=== PATIENT | female | born 1985 | race Two or more races ===

== ENCOUNTER 2016-11-23 22:57 | Emergency (ER) | payer BC, MEDICAID ==
[2016-11-23] MEDS ORDERED: Naloxone 0.4 MG/ML SDV IVPUSH PRN (23:00)
[2016-11-23] MEDS ORDERED: Naloxone 0.4 MG/ML SDV ONE (23:00)
--- NOTE | 2016-11-23 23:32 | EDM.PDOC ---
ED HPI GENERAL MEDICAL PROBLEM - General Chief Complaint: Drug or Alcohol Abuse Stated Complaint: MEDICATION Time Seen by Provider: 11/23/16 23:02 Source of Information: Reports: Patient History Limitations: Reports: No limitations - History of Present Illness INITIAL COMMENTS - FREE TEXT/NARRATIVE: c/o mental status change states she "took some pills", moving, not answering questions, appeared volitional, given Narcan, still preferred to keep eyes closed, says she is in pain, she is "tired of being in pain". Says pain is in RLQ, that she has had 3 abd surgeries in [place] for endometriosis, they "took everything out", "surgery did not work", still having pain. Wants pain to go away. 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 Female Surgical History: Reports: Hysterectomy, Salpingo-oophorectomy Other Female Surgeries/Procedures: oopherectomy Social & Family History - Family History Family Medical History: Noncontributory - Tobacco Use Smoking Status *Q: Light Tobacco Smoker Years of Tobacco use: 10 Packs/Tins Daily: 0 Used Tobacco, but Quit: No Second Hand Smoke Exposure: No - Caffeine Use Caffeine Use: Reports: Coffee - Alcohol Use Days Per Week of Alcohol Use: 0 Number of Drinks Per Day: 12 Total Drinks Per Week: 0 - Recreational Drug Use Recreational Drug Use: No - Living Situation & Occupation Living situation: Reports: ED ROS GENERAL - Review of Systems Review Of Systems: See Below Constitutional: Reports: no symptoms HEENT: Reports: No symptoms Respiratory: Reports: No Symptoms Cardiovascular: Reports: No symptoms Endocrine: Reports: no symptoms GI/Abdominal: Reports: No symptoms : Reports: no symptoms Musculoskeletal: Reports: no symptoms Skin: Reports: no symptoms Neurological: Reports: Other (somnolence) Psychiatric: Reports: No symptoms Hematologic/Lymphatic: Reports: no symptoms Immunologic: Reports: no symptoms ED EXAM, GENERAL - Physical Exam Exam: See Below Exam Limited By: Altered mental status General Appearance: alert, WD/WN, no apparent distress Eye Exam: bilateral eye: normal inspection, other (pupils 2/2 mm b/l, conjugate) Ears: normal external exam, hearing grossly normal Nose: normal inspection, normal mucosa, no blood Throat/Mouth: Normal inspection, Normal lips, Normal teeth, Normal gums, Normal oropharynx, Normal voice, No airway compromise, Other (jewelry in tip of tongue) Head: atraumatic, normocephalic Neck: normal inspection, supple, non-tender, full range of motion Respiratory/Chest: no respiratory distress, lungs clear, normal breath sounds, no accessory muscle use, chest non-tender Cardiovascular: regular rate, rhythm, no edema, no gallop, no murmur, no rub GI/Abdominal: normal bowel sounds, soft, non tender, no distention, no mass Back Exam: normal inspection, full range of motion, NT Extremities: normal inspection, normal range of motion, non-tender, normal capillary refill, no pedal edema Neurological: CN II-XII intact, normal reflexes, no motor/sensory deficits, other (DTRs 2+ at biceps and patella b/l) Skin Exam: Warm, Dry, Intact, Normal color, No rash Lymphatic: no adenopathy Course - Vital Signs Last Recorded V/S: Last Vital Signs Temp 36.8 C 11/23/16 23:00 Pulse 98 11/23/16 23:00 Resp 18 11/23/16 23:00 BP 124/84 11/23/16 23:00 Pulse Ox 100 11/23/16 23:00 - Orders/Labs/Meds Orders: Active Orders 24 hr Category Date Time Status CBC WITH AUTO DIFF [HEME] Stat Lab 11/23/16 23:20 Received Labs: Laboratory Tests 11/23/16 11/23/16 11/23/16 Range/Units 23:05 23:05 23:20 Sodium 140 (135-145) mmol/L Potassium 3.9 (3.5-5.3) mmol/L Chloride 105 (100-110) mmol/L Carbon Dioxide 27 (23-29) mmol/L BUN 8 (5-20) mg/dL Creatinine 0.5 L (0.6-1.3) mg/dL Est Cr Clr Drug Dosing TNP Estimated GFR (MDRD) > 60 (>60) BUN/Creatinine Ratio 16.0 (9-20) Glucose 98 (80-116) mg/dL Calcium 9.0 (8.6-10.2) mg/dL Total Bilirubin 0.2 (0.1-1.3) mg/dL AST 15 D (5-27) IU/L ALT 18 D (14-26) IU/L Alkaline Phosphatase 88 (56-112) IU/L C-Reactive Protein 0.5 (0.0-1.0) mg/dL Total Protein 7.4 (6.0-8.0) g/dL Albumin 4.2 (3.5-5.2) g/dL Globulin 3.2 g/dL Albumin/Globulin Ratio 1.3 Urine Color Yellow (YELLOW) Urine Appearance Clear (CLEAR) Urine pH 6.5 (5.0-6.5) Ur Specific [place] 1.015 (1.010-1.025) Urine Protein Negative (NEGATIVE) mg/dL Urine Glucose (UA) Normal (NEGATIVE) mg/dL Urine Ketones Negative (NEGATIVE) mg/dL Urine Occult Blood Negative (NEGATIVE) Urine Nitrite Negative (NEGATIVE) Urine Bilirubin Negative (NEGATIVE) Urine Urobilinogen Normal (NEGATIVE) mg/dL Ur Leukocyte Esterase Negative (NEGATIVE) Urine RBC 0-5 (0) Urine WBC 0-5 (0) Ur Squamous Epith Cells Few H (NS,R,O) Urine Bacteria Few H (NS) Salicylates (5.0-25.0) mg/dL Urine Opiates Screen Negative (NEGATIVE) Ur Oxycodone Screen Negative (NEGATIVE) Ur Propoxyphene Screen Negative (NEGATIVE) Acetaminophen (10-30) ug/mL Ur Barbituates Screen Negative (NEGATIVE) Ur Tricyclics Screen Negative (NEGATIVE) Ur Phencyclidine Scrn Negative (NEGATIVE) Ur Amphetamine Screen Negative (NEGATIVE) Urine MDMA Screen Negative (NEGATIVE) U Benzodiazepines Scrn Negative (NEGATIVE) U Cocaine Metab Screen Negative (NEGATIVE) U Marijuana (THC) Screen Negative (NEGATIVE) Ethyl Alcohol (<0.01) % 11/23/16 11/23/16 Range/Units 23:20 23:20 Sodium (135-145) mmol/L Potassium (3.5-5.3) mmol/L Chloride (100-110) mmol/L Carbon Dioxide (23-29) mmol/L BUN (5-20) mg/dL Creatinine (0.6-1.3) mg/dL Est Cr Clr Drug Dosing Estimated GFR (MDRD) (>60) BUN/Creatinine Ratio (9-20) Glucose (80-116) mg/dL Calcium (8.6-10.2) mg/dL Total Bilirubin (0.1-1.3) mg/dL AST (5-27) IU/L ALT (14-26) IU/L Alkaline Phosphatase (56-112) IU/L C-Reactive Protein (0.0-1.0) mg/dL Total Protein (6.0-8.0) g/dL Albumin (3.5-5.2) g/dL Globulin g/dL Albumin/Globulin Ratio Urine Color (YELLOW) Urine Appearance (CLEAR) Urine pH (5.0-6.5) Ur Specific [place] (1.010-1.025) Urine Protein (NEGATIVE) mg/dL Urine Glucose (UA) (NEGATIVE) mg/dL Urine Ketones (NEGATIVE) mg/dL Urine Occult Blood (NEGATIVE) Urine Nitrite (NEGATIVE) Urine Bilirubin (NEGATIVE) Urine Urobilinogen (NEGATIVE) mg/dL Ur Leukocyte Esterase (NEGATIVE) Urine RBC (0) Urine WBC (0) Ur Squamous Epith Cells (NS,R,O) Urine Bacteria (NS) Salicylates < 4.0 L (5.0-25.0) mg/dL Urine Opiates Screen (NEGATIVE) Ur Oxycodone Screen (NEGATIVE) Ur Propoxyphene Screen (NEGATIVE) Acetaminophen < 10 L (10-30) ug/mL Ur Barbituates Screen (NEGATIVE) Ur Tricyclics Screen (NEGATIVE) Ur Phencyclidine Scrn (NEGATIVE) Ur Amphetamine Screen (NEGATIVE) Urine MDMA Screen (NEGATIVE) U Benzodiazepines Scrn (NEGATIVE) U Cocaine Metab Screen (NEGATIVE) U Marijuana (THC) Screen (NEGATIVE) Ethyl Alcohol 0.04 H (<0.01) % Meds: Medications Discontinued Medications Generic Name Dose Route Start Last Admin Trade Name Freq PRN Reason Stop Dose Admin Naloxone HCl Confirm 11/23/16 23:00 11/23/16 23:04 Narcan Administered 11/23/16 23:01 0.4 mg Dose Administration 0.4 mg .ROUTE .STK-MED ONE Naloxone HCl 0.1 mg 11/23/16 23:00 Narcan IVPUSH 11/23/16 23:01 ONETIME PRN Oversedation - Re-Assessments/Exams Free Text/Narrative Re-Assessment/Exam: 11/24/16 00:09 labs reviewed, ethanol 40, urine tox neg, CBC and CRP and CMP neg. Pt alert and responding. Abd is NT despite pt c/o pain, multiple old port sites on abd from laparoscopies noted. Pt medically stable. 11/24/16 00:11 Departure - Departure Time of Disposition: 00:11 Disposition: Home, Self-Care 01 Condition: good Clinical Impression: Chronic abdominal pain Forms: ED Department Discharge Additional Instructions: Take your meds only as prescribed. Continue your daily routine. See your doctor in 1-2 days. Call your Physician or Return to Emergency Department if: * Your condition worsens in any way. * You develop fever greater than 100.4. * You have vomiting that does not stop with medications. * You have pain that is not controlled with medications. - My Orders Last 24 Hours: My Active Orders 11/23/16 23:20 CBC WITH AUTO DIFF [HEME] Stat - Assessment/Plan Last 24 Hours: My Active Orders 11/23/16 23:20 CBC WITH AUTO DIFF [HEME] Stat
[2016-11-23 23:45] LABS: ACETAMINOPHEN < 10 ug/mL (10-30)
[2016-11-24 00:46] VITALS: BP 110/68
== END 2016-11-24 00:45 | disposition home or self-care (01) ==
LOC: FB.ED 22:57
DX: R10.31 Right lower quadrant pain (principal); G89.29 Other chronic pain; F41.9 Anxiety disorder, unspecified; F32.9 Major depressive disorder, single episode, unspecified; F17.200 Nicotine dependence, unspecified, uncomplicated; Z90.710 Acquired absence of both cervix and uterus; Z86.2 Personal history of diseases of the blood and blood-forming organs and certain disorders involving the immune mechanism
CPT/HCPCS: 36415; 80053; 80305; 81001; 85025; 86140; 96374; 99284; G0480; J2310

== ENCOUNTER 2017-01-27 09:42 | Emergency (ER) | payer BC, MEDICAID ==
[2017-01-27] MEDS ORDERED: Sodium Chloride 0.9% 1,000 ML IV ONE (09:44)
[2017-01-27 11:17] VITALS: BP 124/72
--- NOTE | 2017-01-27 11:29 | EDM.PDOC ---
ED HPI GENERAL MEDICAL PROBLEM - General Chief Complaint: Behavioral/Psych Stated Complaint: OD Time Seen by Provider: 01/27/17 09:45 Source of Information: Reports: Patient, Family - History of Present Illness INITIAL COMMENTS - FREE TEXT/NARRATIVE: long history of depression, grandmother last month and has lead to her spiraling into dispair, had mental health admission couple weeks ago. this morning feeling suicidal and overdosed on her benzodiazepem and antidepressant. Feels sleepy but otherwise denies any other symptoms. 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, Musculoskeletal History: Reports: Arthritis, Back Pain, Chronic Psychiatric History: Reports: Anxiety, Depression, Panic Attack Hematologic History: Reports: Anemia - Past Surgical History Female Surgical History: Reports: Hysterectomy, Salpingo-Oophorectomy Social & Family History - Family History Family Medical History: Noncontributory - Tobacco Use Smoking Status *Q: Light Tobacco Smoker Years of Tobacco use: 10 Packs/Tins Daily: 0 Used Tobacco, but Quit: No Second Hand Smoke Exposure: No - Caffeine Use Caffeine Use: Reports: Coffee - Alcohol Use Days Per Week of Alcohol Use: 0 Number of Drinks Per Day: 12 Total Drinks Per Week: 0 - Recreational Drug Use Recreational Drug Use: No - Living Situation & Occupation Living situation: Reports: ED ROS GENERAL - Review of Systems Review Of Systems: ROS reveals no pertinent complaints other than HPI. ED EXAM, BEHAVIORAL HEALTH - Physical Exam Exam: See Below Exam Limited By: Altered Mental Status General Appearance: Lethargic Eye Exam: Bilateral Eye: PERRL Ears: Normal External Exam Head: Atraumatic Respiratory/Chest: No Respiratory Distress, Lungs Clear Cardiovascular: Normal Peripheral Pulses, Regular Rate, Rhythm Neurological: Alert, Oriented x 3 Psychiatric: Depressed Mood, Flat Affect, Suicidal Plan, Suicidal Thoughts, Auditory Hallucinations COURSE, BEHAVIORAL HEALTH COMP - Course Vital Signs: Last Vital Signs Temp 36.6 C 01/27/17 09:42 Pulse 63 01/27/17 09:42 Resp 14 01/27/17 09:42 BP 124/72 01/27/17 09:42 Pulse Ox 100 01/27/17 09:42 Orders, Labs, Meds: Active Orders 24 hr Category Date Time Status EKG 12 Lead [EK] Routine Ther 01/27/17 09:44 Ordered Laboratory Tests 01/27/17 01/27/17 01/27/17 Range/Units 09:50 09:50 09:50 WBC 4.8 (4.5-12.0) X10-3/uL RBC 5.02 (3.23-5.20) x10(6)uL Hgb 15.4 (11.5-15.5) g/dL Hct 45.0 (30.0-51.3) % MCV 89.6 (80-96) fL MCH 30.8 (27.7-33.6) pg MCHC 34.3 (32.2-35.4) g/dL RDW 11.8 (11.5-15.5) % Plt Count 293 (125-369) X10(3)uL MPV 7.9 (7.4-10.4) fL Neut % (Auto) 65.5 (46-82) % Lymph % (Auto) 25.4 (13-37) % [place] % (Auto) 6.3 (4-12) % Eos % (Auto) 2 (1.0-5.0) % Baso % (Auto) 1 (0-2) % Neut # (Auto) 3.2 (1.6-8.3) # Lymph # (Auto) 1.2 (0.6-5.0) # [place] # (Auto) 0.3 (0.0-1.3) # Eos # (Auto) 0.1 (0.0-0.8) # Baso # (Auto) 0.0 (0.0-0.2) # Sodium 137 (135-145) mmol/L Potassium 3.7 (3.5-5.3) mmol/L Chloride 104 (100-110) mmol/L Carbon Dioxide 26 (23-29) mmol/L BUN 19 D (5-20) mg/dL Creatinine 0.7 (0.6-1.3) mg/dL Est Cr Clr Drug Dosing TNP Estimated GFR (MDRD) > 60 (>60) BUN/Creatinine Ratio 27.1 H (9-20) Glucose 103 (80-116) mg/dL Calcium 8.8 (8.6-10.2) mg/dL Total Bilirubin 1.2 (0.1-1.3) mg/dL AST 15 (5-27) IU/L ALT 13 L D (14-26) IU/L Alkaline Phosphatase 69 (56-112) IU/L Total Protein 7.7 (6.0-8.0) g/dL Albumin 4.4 (3.5-5.2) g/dL Globulin 3.3 g/dL Albumin/Globulin Ratio 1.3 TSH, Ultra Sensitive 0.84 (0.4-5.5) nlU/mL Urine Color (YELLOW) Urine Appearance (CLEAR) Urine pH (5.0-6.5) Ur Specific [place] (1.010-1.025) Urine Protein (NEGATIVE) mg/dL Urine Glucose (UA) (NEGATIVE) mg/dL Urine Ketones (NEGATIVE) mg/dL Urine Occult Blood (NEGATIVE) Urine Nitrite (NEGATIVE) Urine Bilirubin (NEGATIVE) Urine Urobilinogen (NEGATIVE) mg/dL Ur Leukocyte Esterase (NEGATIVE) Urine WBC (0) Ur Squamous Epith Cells (NS,R,O) Urine Bacteria (NS) Urine HCG, Qual (NEGATIVE) Urine Opiates Screen (NEGATIVE) Ur Oxycodone Screen (NEGATIVE) Ur Propoxyphene Screen (NEGATIVE) Ur Barbituates Screen (NEGATIVE) Ur Tricyclics Screen (NEGATIVE) Ur Phencyclidine Scrn (NEGATIVE) Ur Amphetamine Screen (NEGATIVE) Urine MDMA Screen (NEGATIVE) U Benzodiazepines Scrn (NEGATIVE) U Cocaine Metab Screen (NEGATIVE) U Marijuana (THC) Screen (NEGATIVE) Ethyl Alcohol (<0.01) % 01/27/17 01/27/17 01/27/17 Range/Units 09:50 10:40 10:40 WBC (4.5-12.0) X10-3/uL RBC (3.23-5.20) x10(6)uL Hgb (11.5-15.5) g/dL Hct (30.0-51.3) % MCV (80-96) fL MCH (27.7-33.6) pg MCHC (32.2-35.4) g/dL RDW (11.5-15.5) % Plt Count (125-369) X10(3)uL MPV (7.4-10.4) fL Neut % (Auto) (46-82) % Lymph % (Auto) (13-37) % [place] % (Auto) (4-12) % Eos % (Auto) (1.0-5.0) % Baso % (Auto) (0-2) % Neut # (Auto) (1.6-8.3) # Lymph # (Auto) (0.6-5.0) # [place] # (Auto) (0.0-1.3) # Eos # (Auto) (0.0-0.8) # Baso # (Auto) (0.0-0.2) # Sodium (135-145) mmol/L Potassium (3.5-5.3) mmol/L Chloride (100-110) mmol/L Carbon Dioxide (23-29) mmol/L BUN (5-20) mg/dL Creatinine (0.6-1.3) mg/dL Est Cr Clr Drug Dosing Estimated GFR (MDRD) (>60) BUN/Creatinine Ratio (9-20) Glucose (80-116) mg/dL Calcium (8.6-10.2) mg/dL Total Bilirubin (0.1-1.3) mg/dL AST (5-27) IU/L ALT (14-26) IU/L Alkaline Phosphatase (56-112) IU/L Total Protein (6.0-8.0) g/dL Albumin (3.5-5.2) g/dL Globulin g/dL Albumin/Globulin Ratio TSH, Ultra Sensitive (0.4-5.5) nlU/mL Urine Color (YELLOW) Urine Appearance (CLEAR) Urine pH (5.0-6.5) Ur Specific [place] (1.010-1.025) Urine Protein (NEGATIVE) mg/dL Urine Glucose (UA) (NEGATIVE) mg/dL Urine Ketones (NEGATIVE) mg/dL Urine Occult Blood (NEGATIVE) Urine Nitrite (NEGATIVE) Urine Bilirubin (NEGATIVE) Urine Urobilinogen (NEGATIVE) mg/dL Ur Leukocyte Esterase (NEGATIVE) Urine WBC (0) Ur Squamous Epith Cells (NS,R,O) Urine Bacteria (NS) Urine HCG, Qual Negative (NEGATIVE) Urine Opiates Screen Negative (NEGATIVE) Ur Oxycodone Screen Negative (NEGATIVE) Ur Propoxyphene Screen Negative (NEGATIVE) Ur Barbituates Screen Negative (NEGATIVE) Ur Tricyclics Screen Negative (NEGATIVE) Ur Phencyclidine Scrn Negative (NEGATIVE) Ur Amphetamine Screen Negative (NEGATIVE) Urine MDMA Screen Negative (NEGATIVE) U Benzodiazepines Scrn Negative (NEGATIVE) U Cocaine Metab Screen Positive H (NEGATIVE) U Marijuana (THC) Screen Positive H (NEGATIVE) Ethyl Alcohol < 0.01 (<0.01) % 01/27/17 Range/Units 10:40 WBC (4.5-12.0) X10-3/uL RBC (3.23-5.20) x10(6)uL Hgb (11.5-15.5) g/dL Hct (30.0-51.3) % MCV (80-96) fL MCH (27.7-33.6) pg MCHC (32.2-35.4) g/dL RDW (11.5-15.5) % Plt Count (125-369) X10(3)uL MPV (7.4-10.4) fL Neut % (Auto) (46-82) % Lymph % (Auto) (13-37) % [place] % (Auto) (4-12) % Eos % (Auto) (1.0-5.0) % Baso % (Auto) (0-2) % Neut # (Auto) (1.6-8.3) # Lymph # (Auto) (0.6-5.0) # [place] # (Auto) (0.0-1.3) # Eos # (Auto) (0.0-0.8) # Baso # (Auto) (0.0-0.2) # Sodium (135-145) mmol/L Potassium (3.5-5.3) mmol/L Chloride (100-110) mmol/L Carbon Dioxide (23-29) mmol/L BUN (5-20) mg/dL Creatinine (0.6-1.3) mg/dL Est Cr Clr Drug Dosing Estimated GFR (MDRD) (>60) BUN/Creatinine Ratio (9-20) Glucose (80-116) mg/dL Calcium (8.6-10.2) mg/dL Total Bilirubin (0.1-1.3) mg/dL AST (5-27) IU/L ALT (14-26) IU/L Alkaline Phosphatase (56-112) IU/L Total Protein (6.0-8.0) g/dL Albumin (3.5-5.2) g/dL Globulin g/dL Albumin/Globulin Ratio TSH, Ultra Sensitive (0.4-5.5) nlU/mL Urine Color Yellow (YELLOW) Urine Appearance Slightly cloudy (CLEAR) Urine pH 5.0 (5.0-6.5) Ur Specific [place] 1.025 (1.010-1.025) Urine Protein Trace (NEGATIVE) mg/dL Urine Glucose (UA) Normal (NEGATIVE) mg/dL Urine Ketones Negative (NEGATIVE) mg/dL Urine Occult Blood Negative (NEGATIVE) Urine Nitrite Negative (NEGATIVE) Urine Bilirubin Small H (NEGATIVE) Urine Urobilinogen 1 H (NEGATIVE) mg/dL Ur Leukocyte Esterase Small H (NEGATIVE) Urine WBC 5-10 (0) Ur Squamous Epith Cells Moderate H (NS,R,O) Urine Bacteria Moderate H (NS) Urine HCG, Qual (NEGATIVE) Urine Opiates Screen (NEGATIVE) Ur Oxycodone Screen (NEGATIVE) Ur Propoxyphene Screen (NEGATIVE) Ur Barbituates Screen (NEGATIVE) Ur Tricyclics Screen (NEGATIVE) Ur Phencyclidine Scrn (NEGATIVE) Ur Amphetamine Screen (NEGATIVE) Urine MDMA Screen (NEGATIVE) U Benzodiazepines Scrn (NEGATIVE) U Cocaine Metab Screen (NEGATIVE) U Marijuana (THC) Screen (NEGATIVE) Ethyl Alcohol (<0.01) % Medications Discontinued Medications Generic Name Dose Route Start Last Admin Trade Name Freq PRN Reason Stop Dose Admin Sodium Chloride 1,000 mls @ 0 mls/hr 01/27/17 09:44 Normal Saline IV 01/27/17 09:45 .BOLUS ONE KVO Departure - Departure Time of Disposition: 11:29 Disposition: DC/Tfer to Psych Hosp/Unit 65 Clinical Impression: Depressive disorder, Self-harm - Discharge Information Forms: ED Department Discharge - My Orders Last 24 Hours: My Active Orders 01/27/17 09:44 EKG 12 Lead [EK] Routine - Assessment/Plan Last 24 Hours: My Active Orders 01/27/17 09:44 EKG 12 Lead [EK] Routine
== END 2017-01-27 14:50 ==
LOC: FB.ED 09:42
DX: T42.4X2A Poisoning by benzodiazepines, intentional self-harm, initial encounter (principal); F32.9 Major depressive disorder, single episode, unspecified; F17.210 Nicotine dependence, cigarettes, uncomplicated; F41.9 Anxiety disorder, unspecified
CPT/HCPCS: 36415; 80053; 80305; 81001; 81025; 84443; 85025; 93005; 96360; 96361; 99285; G0480; J7040

== ENCOUNTER 2017-04-11 23:30 | Emergency (ER) | payer BC, MEDICAID, OTHER ==
[2017-04-11 23:44] VITALS: BP 112/70
[2017-04-11] MEDS ORDERED: hydrOXYzine HCl 50 MG/ML SDV IM ONE (23:57)
[2017-04-11] MEDS ORDERED: Ketorolac 30 MG/ML SDV IM ONE (23:57)
--- NOTE | 2017-04-12 00:03 | EDM.PDOC ---
ED HPI GENERAL MEDICAL PROBLEM - General Chief Complaint: Headache Stated Complaint: HEADACHE Time Seen by Provider: 04/11/17 23:45 Source of Information: Reports: Patient, Old Records History Limitations: Reports: No Limitations - History of Present Illness INITIAL COMMENTS - FREE TEXT/NARRATIVE: Kaley comes in with a relapse of migraine headache since yesterday. She is experiencing a throbbing headache, with photophobia, noise sensitivity, and malaise. Imitrex tabs have been ineffective. head Pain Score (Numeric/FACES): 10 - Related Data Allergies Allergy/AdvReac Type Severity Reaction Status Date / Time No Known Allergies Allergy Verified 04/11/17 23:35 Home Meds: Home Meds . 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, Musculoskeletal History: Reports: Arthritis, Back Pain, Chronic Neurological History: Reports: Other (See Below) Other Neuro History: recurrent migraines Psychiatric History: Reports: Anxiety, Depression, Panic Attack Hematologic History: Reports: Anemia - Past Surgical History Female Surgical History: Reports: Hysterectomy, Salpingo-Oophorectomy Social & Family History - Family History Family Medical History: Noncontributory - Tobacco Use Smoking Status *Q: Current Every Day Smoker Years of Tobacco use: 1 Packs/Tins Daily: 0.5 Used Tobacco, but Quit: No Second Hand Smoke Exposure: No - Caffeine Use Caffeine Use: Reports: Soda - Alcohol Use Days Per Week of Alcohol Use: 0 Number of Drinks Per Day: 12 Total Drinks Per Week: 0 - Recreational Drug Use Recreational Drug Use: No - Living Situation & Occupation Living situation: Reports: ED ROS GENERAL - Review of Systems Review Of Systems: ROS reveals no pertinent complaints other than HPI. - Physical Exam Exam: See Below Exam Limited By: No Limitations General Appearance: Alert, WD/WN, Moderate Distress Eye Exam: Bilateral Eye: EOMI, Normal Inspection, PERRL Ears: Normal External Exam, Normal TMs Nose: Normal Inspection, Normal Mucosa Throat/Mouth: Normal Inspection, Normal Lips, Normal Teeth, Normal Gums, Normal Oropharynx, Normal Voice, No Airway Compromise Head Exam: Normocephalic Neck: Normal Inspection, Supple, Non-Tender Respiratory/Chest: Lungs Clear, Normal Breath Sounds Cardiovascular: Regular Rate, Rhythm, No Murmur GI/Abdominal: Normal Bowel Sounds, Soft, Non-Tender, No Organomegaly Neuro Exam (Abbreviated): Alert, Oriented, CN II-XII Intact, Normal Cognition, Normal Gait, No Motor/Sensory Deficits Back Exam: Normal Inspection Extremities: Normal Inspection Psychiatric: Normal Affect, Normal Mood Skin Exam: Warm, Dry Course - Vital Signs Text/Narrative:: Following assession at the [facility], I administered Toradol 30 mg IM and Vistaril 50 mg IM. Patient tolerated well. Last Recorded V/S: Last Vital Signs Temp 36.5 C 04/11/17 23:40 Pulse 58 L 04/11/17 23:40 Resp 17 04/11/17 23:40 BP 112/70 04/11/17 23:40 Pulse Ox 100 04/11/17 23:40 - Orders/Labs/Meds Orders: Active Orders 24 hr Category Date Time Status Ketorolac [Toradol] Med 04/11/17 23:57 Once 30 mg IM ONETIME ONE hydrOXYzine HCl [Vistaril] Med 04/11/17 23:57 Once 50 mg IM ONETIME ONE Medication Orders Hydroxyzine HCl (Vistaril) 50 mg IM ONETIME ONE Stop: 04/11/17 23:58 Ketorolac Tromethamine (Toradol) 30 mg IM ONETIME ONE Stop: 04/11/17 23:58 Meds: Medications Generic Name Dose Route Start Last Admin Trade Name Freq PRN Reason Stop Dose Admin Hydroxyzine HCl 50 mg 04/11/17 23:57 Vistaril IM 04/11/17 23:58 ONETIME ONE Ketorolac Tromethamine 30 mg 04/11/17 23:57 Toradol IM 04/11/17 23:58 ONETIME ONE Departure - Departure Time of Disposition: 00:10 Disposition: Home, Self-Care 01 Condition: Fair Clinical Impression: Migraine - Discharge Information Referrals: Dwain Mosqueda MD [Primary Care Provider] - - Problem List & Annotations (1) Migraine SNOMED Code(s): 75837788 Code(s): G43.909 - MIGRAINE, UNSP, NOT INTRACTABLE, WITHOUT STATUS MIGRAINOSUS Status: Acute Current Visit: Yes Annotation/Comment:: Following observation, Kaley was discharged home for rest. She may take NSAIDs for any relapse of pain. - Problem List Review Problem List Initiated/Reviewed/Updated: Yes - My Orders Last 24 Hours: My Active Orders 04/11/17 23:57 Ketorolac [Toradol] 30 mg IM ONETIME ONE hydrOXYzine HCl [Vistaril] 50 mg IM ONETIME ONE - Assessment/Plan Last 24 Hours: My Active Orders 04/11/17 23:57 Ketorolac [Toradol] 30 mg IM ONETIME ONE hydrOXYzine HCl [Vistaril] 50 mg IM ONETIME ONE Plan: Follow up with PCP if needed.
== END 2017-04-12 00:09 | disposition home or self-care (01) ==
LOC: FB.ED 23:30
DX: G43.909 Migraine, unspecified, not intractable, without status migrainosus (principal); M19.90 Unspecified osteoarthritis, unspecified site; F17.210 Nicotine dependence, cigarettes, uncomplicated; F41.9 Anxiety disorder, unspecified; F32.9 Major depressive disorder, single episode, unspecified; Z90.710 Acquired absence of both cervix and uterus
CPT/HCPCS: 96372; 99282; J1885; J3410; 99283

== ENCOUNTER 2017-04-24 05:37 | Emergency (ER) | payer MEDICAID, OTHER ==
--- NOTE | 2017-04-24 06:15 | EDM.PDOC ---
ED HPI GENERAL MEDICAL PROBLEM - General Stated Complaint: RASH ALLOVER Time Seen by Provider: 04/24/17 06:00 Source of Information: Reports: Patient History Limitations: Reports: No Limitations - History of Present Illness INITIAL COMMENTS - FREE TEXT/NARRATIVE: Patient is a 31 year old woman who has had a pruritic skin rash that has worsened over her whole body. No fever or chills or breathing problems. She has taken some benedryl and it has helped a little. No other complaints. Onset: Gradual Onset Date: 04/21/17 Duration: Day(s): (3) Location: Reports: Generalized Quality: Reports: Other (Itching) Severity: Mild Improves with: Reports: Other (Antihistamines) Worsens with: Reports: None Context: Reports: Other (Hives) Associated Symptoms: Reports: No Other Symptoms - Related Data Allergies Allergy/AdvReac Type Severity Reaction Status Date / Time No Known Allergies Allergy Verified 04/11/17 23:35 Home Meds: Home Meds Fludrocortisone [Florinef] 0.1 mg PO DAILY 04/11/17 [History] SUMAtriptan [Imitrex] 25 mg PO TID PRN 04/11/17 [History] traMADol [Ultram] 50 mg PO Q6HR PRN 04/11/17 [History] Past Medical History - Past Health History Medical/Surgical History: Denies Medical/Surgical History Other Cardiovascular 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, Musculoskeletal History: Reports: Arthritis, Back Pain, Chronic Neurological History: Reports: Other (See Below) Other Neuro History: recurrent migraines Psychiatric History: Reports: Anxiety, Depression, Panic Attack Hematologic History: Reports: Anemia - Past Surgical History Female Surgical History: Reports: Hysterectomy, Salpingo-Oophorectomy Social & Family History - Family History Family Medical History: Noncontributory - Tobacco Use Smoking Status *Q: Current Every Day Smoker Years of Tobacco use: 1 Packs/Tins Daily: 0.5 Used Tobacco, but Quit: No Second Hand Smoke Exposure: No - Caffeine Use Caffeine Use: Reports: Soda - Alcohol Use Days Per Week of Alcohol Use: 0 Number of Drinks Per Day: 12 Total Drinks Per Week: 0 - Recreational Drug Use Recreational Drug Use: No - Living Situation & Occupation Living situation: Reports: ED ROS GENERAL - Review of Systems Review Of Systems: See Below Constitutional: Reports: No Symptoms HEENT: Reports: No Symptoms Respiratory: Reports: No Symptoms Cardiovascular: Reports: No Symptoms Endocrine: Reports: No Symptoms GI/Abdominal: Reports: No Symptoms : Reports: No Symptoms Musculoskeletal: Reports: No Symptoms Skin: Reports: Pruritis, Rash, Urticaria Neurological: Reports: No Symptoms Psychiatric: Reports: No Symptoms Hematologic/Lymphatic: Reports: No Symptoms Immunologic: Reports: No Symptoms ED EXAM, SKIN/RASH Exam: See Below Exam Limited By: No Limitations General Appearance: Alert, WD/WN, No Apparent Distress Eye Exam: Bilateral Eye: EOMI, Normal Fundi, Normal Inspection, PERRL Ears: Normal External Exam, Normal Canal, Hearing Grossly Normal, Normal TMs Nose: Normal Inspection, Normal Mucosa, No Blood Throat/Mouth: Normal Inspection, Normal Lips, Normal Teeth, Normal Gums, Normal Oropharynx, Normal Voice, No Airway Compromise Head: Atraumatic, Normocephalic Neck: Normal Inspection, Supple, Non-Tender, Full Range of Motion Respiratory/Chest: No Respiratory Distress, Lungs Clear, Normal Breath Sounds, No Accessory Muscle Use, Chest Non-Tender Cardiovascular: Normal Peripheral Pulses, Regular Rate, Rhythm, No Edema, No Gallop, No JVD, No Murmur, No Rub GI/Abdominal: Normal Bowel Sounds, Soft, Non-Tender, No Organomegaly, No Distention, No Abnormal Bruit, No Mass (Female) Exam: Normal External Exam, Normal Speculum Exam, Normal Bimanual Exam Extremities: Normal Inspection, Normal Range of Motion, Non-Tender, No Pedal Edema, Normal Capillary Refill Neurological: Alert, Oriented, CN II-XII Intact, Normal Cognition, Normal Gait, Normal Reflexes, No Motor/Sensory Deficits Psychiatric: Normal Affect, Normal Mood Skin: Erythema, Rash Location, Skin: Generalized Characteristics: Urticarial Lymphatic: No Adenopathy Course - Vital Signs Text/Narrative:: Uneventful ED course. Patient was given a Medrol dosepak,Benedryl 50 mg po q 4 hours, Precious 180 mg po q day, Vanicream to the skin and recheck with her PCP next week. Departure - Departure Time of Disposition: 06:36 Disposition: Home, Self-Care 01 Condition: Good Clinical Impression: Urticaria - Discharge Information Referrals: Dwain Mosqueda MD [Primary Care Provider] -
[2017-04-24 07:23] VITALS: BP 116/69
== END 2017-04-24 06:45 | disposition home or self-care (01) ==
LOC: FB.ED 05:37
DX: L50.9 Urticaria, unspecified (principal); M19.90 Unspecified osteoarthritis, unspecified site; G43.909 Migraine, unspecified, not intractable, without status migrainosus; F17.210 Nicotine dependence, cigarettes, uncomplicated; F41.9 Anxiety disorder, unspecified; F32.9 Major depressive disorder, single episode, unspecified; Z79.899 Other long term (current) drug therapy; Z86.79 Personal history of other diseases of the circulatory system; Z90.710 Acquired absence of both cervix and uterus
CPT/HCPCS: 99282; 99283

== ENCOUNTER 2017-06-18 22:12 | Emergency (ER) | payer MEDICAID, OTHER ==
--- NOTE | 2017-06-18 23:14 | EDM.PDOC ---
ED HPI GENERAL MEDICAL PROBLEM - General Chief Complaint: General Stated Complaint: dizziness Time Seen by Provider: 06/18/17 22:45 Source of Information: Reports: Patient, Family, Old Records History Limitations: Reports: No Limitations - History of Present Illness INITIAL COMMENTS - FREE TEXT/NARRATIVE: Kaley comes to [facility] ED with sxs of dizziness ie. lt headiness this afternoon. She has had these sxs in the recent past, and was placed on steroids to improve sxs with some benefit. She was puzzled by relapse of sxs, and checked her nonFBS at 408 mg%, and decided to come to the ED. Sxs have since improved, and a follow up nonFBS was 100 mg%. Of interest is a PMH of pelvic endometriosis, status post almaraz hysterectomy 4 years ago, and no HRT. - Related Data Allergies Allergy/AdvReac Type Severity Reaction Status Date / Time No Known Allergies Allergy Verified 04/24/17 07:36 Home Meds: Home Meds traMADol [Ultram] 50 mg PO Q6HR PRN 04/11/17 [History] methylPREDNISolone [Medrol] 4 mg PO DAILY 06/18/17 [History] Past Medical History - Past Health History Medical/Surgical History: Denies Medical/Surgical History Cardiovascular History: Reports: Other (See Below) Other Cardiovascular History: States she is hypotensive. 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 Neurological History: Reports: Other (See Below) Other Neuro History: Recurrent migraines----states this has resolved since being on Prednisone. Psychiatric History: Reports: Anxiety, Depression, Panic Attack, Other (See Below) Other Psychiatric History: States she has tried to harm herself in the past. Hematologic History: Reports: Anemia - Past Surgical History Female Surgical History: Reports: Hysterectomy, Salpingo-Oophorectomy Social & Family History - Family History Family Medical History: Noncontributory - Tobacco Use Smoking Status *Q: Current Every Day Smoker Years of Tobacco use: 2 Packs/Tins Daily: 0.5 Used Tobacco, but Quit: No Second Hand Smoke Exposure: No - Caffeine Use Caffeine Use: Reports: Soda - Alcohol Use Days Per Week of Alcohol Use: 0 Number of Drinks Per Day: 12 Total Drinks Per Week: 0 - Recreational Drug Use Recreational Drug Use: No - Living Situation & Occupation Living situation: Reports: ED ROS GENERAL - Review of Systems Review Of Systems: See Below Constitutional: Reports: Weakness HEENT: Reports: No Symptoms Respiratory: Reports: No Symptoms Cardiovascular: Reports: Blood Pressure Problem, Lightheadedness Endocrine: Reports: No Symptoms GI/Abdominal: Reports: No Symptoms : Reports: No Symptoms Musculoskeletal: Reports: Back Pain Skin: Reports: No Symptoms Neurological: Reports: Dizziness, Headache Psychiatric: Reports: Anxiety Hematologic/Lymphatic: Reports: No Symptoms Immunologic: Reports: No Symptoms ED EXAM, GENERAL - Physical Exam Exam: See Below Exam Limited By: No Limitations General Appearance: Alert, WD/WN, No Apparent Distress, Anxious Eye Exam: Bilateral Eye: Normal Inspection, PERRL Ears: Normal External Exam Nose: Normal Inspection Throat/Mouth: Normal Inspection, Normal Oropharynx Head: Normocephalic Neck: Normal Inspection, Supple Respiratory/Chest: Lungs Clear Cardiovascular: Regular Rate, Rhythm GI/Abdominal: Normal Bowel Sounds, Soft, Non-Tender, No Organomegaly, No Distention, No Mass Back Exam: Normal Inspection Extremities: Normal Inspection Neurological: Alert, Oriented, CN II-XII Intact, Normal Cognition, No Motor/ Sensory Deficits Psychiatric: Normal Affect, Anxious Skin Exam: Warm, Dry Lymphatic: No Adenopathy Course - Vital Signs Text/Narrative:: Kaley remained stable and normotensive at [facility] ED. No meds were administered. Last Recorded V/S: Last Vital Signs Temp Pulse 82 06/18/17 22:20 Resp 18 06/18/17 22:20 BP 129/95 H 06/18/17 22:20 Pulse Ox 98 06/18/17 22:20 - Orders/Labs/Meds Orders: Active Orders 24 hr Category Date Time Status Blood Glucose Check, Bedside [] ONETIME Care 06/18/17 22:30 Active Departure - Departure Time of Disposition: 23:17 Disposition: Home, Self-Care 01 Condition: Good Clinical Impression: Dizziness, nonspecific - Discharge Information Referrals: Dwain Mosqueda MD [Primary Care Provider] - - Problem List & Annotations (1) Dizziness, nonspecific SNOMED Code(s): 469166412 Code(s): R42 - DIZZINESS AND GIDDINESS Status: Acute Current Visit: Yes Annotation/Comment:: Dizziness NOS. I suggested a [facility] consult regarding eficacy of HRT. - Problem List Review Problem List Initiated/Reviewed/Updated: Yes - My Orders Last 24 Hours: My Active Orders 06/18/17 22:30 Blood Glucose Check, Bedside [RC] ONETIME - Assessment/Plan Last 24 Hours: My Active Orders 06/18/17 22:30 Blood Glucose Check, Bedside [RC] ONETIME Plan: Follow up with [facility] and PCP.
[2017-06-18 23:15] VITALS: BP 118/90
== END 2017-06-18 23:19 | disposition home or self-care (01) ==
LOC: FB.ED 22:12
DX: R42 Dizziness and giddiness (principal); F17.210 Nicotine dependence, cigarettes, uncomplicated; Z79.899 Other long term (current) drug therapy
CPT/HCPCS: 82962; 99282; 99283

== ENCOUNTER 2017-09-04 01:02 | Emergency (ER) | payer MEDICAID, OTHER ==
[2017-09-04] MEDS ORDERED: SUMAtriptan 6 MG/0.5 ML SDV SUBCUT STA (01:09)
--- NOTE | 2017-09-04 01:09 | EDM.PDOC ---
ED HPI GENERAL MEDICAL PROBLEM - General Stated Complaint: MIGRAINE Time Seen by Provider: 09/04/17 01:02 Source of Information: Reports: Patient, Family History Limitations: Reports: No Limitations - History of Present Illness INITIAL COMMENTS - FREE TEXT/NARRATIVE: 32 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 This typ of headache is typical for her, which she had in the past. Imitrex is the medication which helped her in the past. 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 No trama, no other acute medical issues. BP 100/64 pulse 76 RR 18 Pulse ox 100% Temp 36.8 Onset: Today Onset Date: 09/03/17 Onset Time: 20:00 Duration: Hour(s):, Intermittent Location: Reports: Head Quality: Reports: Ache, Dull, Same as Previous Episode Severity: Moderate Improves with: Reports: Medication Worsens with: Reports: Other (stress(?)) Context: Reports: Other (NOTA) Associated Symptoms: Reports: Nausea/Vomiting, Other (photophobia) head Pain Score (Numeric/FACES): 10 - Related Data Allergies Allergy/AdvReac Type Severity Reaction Status Date / Time No Known Allergies Allergy Verified 09/04/17 01:30 Home Meds: Home Meds traMADol [Ultram] 50 mg PO Q6HR PRN 04/11/17 [History] FLUoxetine [PROzac] 20 mg PO DAILY 09/04/17 [History] Past Medical History - Past Health History Medical/Surgical History: Denies Medical/Surgical History Cardiovascular History: Reports: Other (See Below) Other Cardiovascular History: States she is hypotensive. 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 Neurological History: Reports: Other (See Below) Other Neuro History: Recurrent migraines----states this has resolved since being on Prednisone. Psychiatric History: Reports: Anxiety, Depression, Panic Attack, Other (See Below) Other Psychiatric History: States she has tried to harm herself in the past. Hematologic History: Reports: Anemia - Past Surgical History Female Surgical History: Reports: Hysterectomy, Salpingo-Oophorectomy Social & Family History - Family History Family Medical History: Noncontributory - Tobacco Use Smoking Status *Q: Current Every Day Smoker Years of Tobacco use: 2 Packs/Tins Daily: 0.5 Used Tobacco, but Quit: No Second Hand Smoke Exposure: No - Caffeine Use Caffeine Use: Reports: Soda - Alcohol Use Days Per Week of Alcohol Use: 0 Number of Drinks Per Day: 12 Total Drinks Per Week: 0 - Recreational Drug Use Recreational Drug Use: No - Living Situation & Occupation Living situation: Reports: ED ROS GENERAL - Review of Systems Review Of Systems: See Below Constitutional: Reports: No Symptoms HEENT: Reports: Other (H?A) Respiratory: Reports: No Symptoms Cardiovascular: Reports: No Symptoms Endocrine: Reports: No Symptoms GI/Abdominal: Reports: No Symptoms : Reports: No Symptoms Musculoskeletal: Reports: No Symptoms Skin: Reports: No Symptoms Neurological: Reports: Headache Psychiatric: Reports: No Symptoms Hematologic/Lymphatic: Reports: No Symptoms Immunologic: Reports: No Symptoms - Physical Exam Exam: See Below Exam Limited By: No Limitations General Appearance: Alert, WD/WN, Mild Distress Eye Exam: Bilateral Eye: Normal Inspection Ears: Normal External Exam, Normal Canal Nose: Normal Inspection, Normal Mucosa Throat/Mouth: Normal Inspection, Normal Lips Head Exam: Atraumatic, Normocephalic Neck: Normal Inspection, Supple, Non-Tender, Full Range of Motion Respiratory/Chest: No Respiratory Distress, Lungs Clear, Normal Breath Sounds, No Accessory Muscle Use, Chest Non-Tender Cardiovascular: Normal Peripheral Pulses, Regular Rate, Rhythm, No Edema, No Gallop, No JVD, No Murmur, No Rub GI/Abdominal: Normal Bowel Sounds, Soft, Non-Tender, No Organomegaly, No Distention, No Abnormal Bruit, No Mass, Pelvis Stable (Female) Exam: Deferred Rectal (Female) Exam: Deferred Neuro Exam (Abbreviated): Alert, Oriented, CN II-XII Intact, Normal Cognition, Normal Gait, No Motor/Sensory Deficits Back Exam: Normal Inspection Extremities: Normal Inspection, Normal Range of Motion Psychiatric: Normal Affect, Normal Mood Skin Exam: Warm, Dry, Intact, Normal Color, No Rash Course - Vital Signs Text/Narrative:: 32 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 This typ of headache is typical for her, which she had in the past. Imitrex is the medication which helped her in the past. 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 No trama, no other acute medical issues. BP 100/64 pulse 76 RR 18 Pulse ox 100% Temp 36.8 PE: WNWD W F with R parietal H/H Impression: Classic Migraine H/A Tx: Imitrex Reexam: H/A subsided Plan: d/C with instructions Last Recorded V/S: Last Vital Signs Temp 36.4 C 09/04/17 02:53 Pulse 69 09/04/17 02:53 Resp 15 09/04/17 02:53 BP 99/66 09/04/17 02:53 Pulse Ox 100 09/04/17 02:53 - Orders/Labs/Meds Meds: Medications Discontinued Medications Generic Name Dose Route Start Last Admin Trade Name Marti PRN Reason Stop Dose Admin Sumatriptan Succinate 6 mg 09/04/17 01:09 09/04/17 01:32 Imitrex SUBCUT 09/04/17 01:10 6 mg ONETIME STA Administration Departure - Departure Time of Disposition: 02:50 Disposition: Home, Self-Care 01 Condition: Good Clinical Impression: Migraine aura, persistent Qualifiers: Status migrainosus presence: without status migrainosus Intractability: not intractable Qualified Code(s): G43.509 - Persistent migraine aura without cerebral infarction, not intractable, without status migrainosus - Discharge Information Instructions: Migraine Headache, [id number] Referrals: Dwain Mosqueda MD [Primary Care Provider] - Forms: ED Department Discharge Additional Instructions: Please f/u, come back if your symptoms get worse acutely
[2017-09-04 02:54] VITALS: BP 99/66
== END 2017-09-04 02:55 | disposition home or self-care (01) ==
LOC: FB.ED 01:02
DX: G43.509 Persistent migraine aura without cerebral infarction, not intractable, without status migrainosus (principal); F32.9 Major depressive disorder, single episode, unspecified; F41.0 Panic disorder [episodic paroxysmal anxiety]; F17.210 Nicotine dependence, cigarettes, uncomplicated; Z79.899 Other long term (current) drug therapy
CPT/HCPCS: 96372; 99283; J3030; 99282

== ENCOUNTER 2018-11-14 07:40 | Emergency (ER) | payer MEDICAID ==
--- NOTE | 2018-11-14 08:12 | EDM.PDOC ---
ED HPI GENERAL MEDICAL PROBLEM - General Chief Complaint: Syncope Stated Complaint: RAPID HEART RATE DIZZY Time Seen by Provider: 11/14/18 08:00 Source of Information: Reports: Patient, Old Records History Limitations: Reports: No Limitations - History of Present Illness INITIAL COMMENTS - FREE TEXT/NARRATIVE: Kaley returns to [facility] ED with 2 episodes of lt headiness this am at work, lasting less than 15 minutes, and resolving spontaneously. She felt warm, without flushing, and denies chest pain, SOB, or LOC. She has had similar episodes since 2016, and placed on steroids for suspected orthostasis with some benefit. Her last visit to PCP saw steroid medication increased. Upon arrival, she is asx, BP 103/76, VR 74 and regular. - Related Data Allergies Allergy/AdvReac Type Severity Reaction Status Date / Time No Known Allergies Allergy Verified 11/14/18 07:52 Home Meds: Home Meds Fludrocortisone [Florinef] 0.1 mg PO BID 11/14/18 [History] Past Medical History - Past Health History Medical/Surgical History: Denies Medical/Surgical History Cardiovascular History: Reports: Other (See Below) Other Cardiovascular History: States she is hypotensive. 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 Neurological History: Reports: Other (See Below) Other Neuro History: Recurrent migraines----states this has resolved since being on Prednisone. Psychiatric History: Reports: Anxiety, Depression, Panic Attack, Other (See Below) Other Psychiatric History: States she has tried to harm herself in the past. Hematologic History: Reports: Anemia - Past Surgical History Female Surgical History: Reports: Hysterectomy, Salpingo-Oophorectomy Social & Family History - Family History Family Medical History: Noncontributory - Caffeine Use Caffeine Use: Reports: Soda - Living Situation & Occupation Living situation: Reports: ED ROS GENERAL - Review of Systems Review Of Systems: See Below Constitutional: Reports: No Symptoms HEENT: Reports: No Symptoms Respiratory: Reports: No Symptoms Cardiovascular: Reports: Lightheadedness Endocrine: Reports: No Symptoms GI/Abdominal: Reports: No Symptoms : Reports: No Symptoms Musculoskeletal: Reports: No Symptoms Skin: Reports: No Symptoms Neurological: Reports: Dizziness Psychiatric: Reports: No Symptoms Hematologic/Lymphatic: Reports: No Symptoms Immunologic: Reports: No Symptoms - Physical Exam Exam: See Below Exam Limited By: No Limitations General Appearance: Alert, WD/WN, No Apparent Distress Eye Exam: Bilateral Eye: EOMI, Normal Inspection, PERRL Ears: Normal External Exam, Normal TMs Nose: Normal Inspection Throat/Mouth: Normal Inspection, Normal Oropharynx, No Airway Compromise Head Exam: Normocephalic Neck: Normal Inspection, Supple Respiratory/Chest: No Respiratory Distress, Lungs Clear, Normal Breath Sounds, No Accessory Muscle Use, Chest Non-Tender Cardiovascular: Normal Peripheral Pulses, Regular Rate, Rhythm, No Edema, No JVD , No Murmur, No Rub GI/Abdominal: Normal Bowel Sounds, Soft, Non-Tender, No Organomegaly, No Distention, No Mass (Female) Exam: Deferred Rectal (Female) Exam: Deferred Neuro Exam (Abbreviated): Alert, Oriented, CN II-XII Intact, Normal Cognition, Normal Gait, No Motor/Sensory Deficits Back Exam: Normal Inspection Extremities: Normal Inspection Psychiatric: Normal Affect, Normal Mood Skin Exam: Warm, Dry, Intact, Normal Color, No Rash Course - Vital Signs Text/Narrative:: Kaley remained stable at the [facility] ED. The ekg was NSR and unchanged. Departure - Departure Time of Disposition: 08:13 Disposition: Home, Self-Care 01 Condition: Good Clinical Impression: Near syncope - Discharge Information *PRESCRIPTION DRUG MONITORING PROGRAM REVIEWED*: Not Applicable *COPY OF PRESCRIPTION DRUG MONITORING REPORT IN PATIENT JN: Not Applicable Referrals: Dwain Mosqueda MD [Primary Care Provider] - Forms: ED Department Discharge - Problem List & Annotations (1) Near syncope SNOMED Code(s): 851185435 Code(s): R55 - SYNCOPE AND COLLAPSE Status: Acute Current Visit: Yes Annotation/Comment:: Follow up with PCP today. - Problem List Review Problem List Initiated/Reviewed/Updated: Yes - Assessment/Plan Plan: Follow up with PCP.
[2018-11-14 09:22] VITALS: BP 103/76
== END 2018-11-14 08:40 | disposition home or self-care (01) ==
LOC: FB.ED 07:40
DX: R55 Syncope and collapse (principal); Z79.899 Other long term (current) drug therapy
CPT/HCPCS: 99283

== ENCOUNTER 2018-12-04 21:35 | Emergency (ER) | payer MEDICAID ==
[2018-12-04] MEDS ORDERED: SUMAtriptan 6 MG/0.5 ML SDV SUBCUT STA (21:46)
--- NOTE | 2018-12-04 21:47 | EDM.PDOC ---
ED HPI GENERAL MEDICAL PROBLEM - General Stated Complaint: MIGRAINE Time Seen by Provider: 12/04/18 21:42 Source of Information: Reports: Patient History Limitations: Reports: No Limitations - History of Present Illness INITIAL COMMENTS - FREE TEXT/NARRATIVE: 33 y.o. female with a H/O migraine H/A, came withe her own car to the ED due to mily temporal H/A as she had in the past. No N/V/D no trauma. 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 Pt stated, in the past. Imitrex give SQ helped her pain. No other acute med. issues. BP 106/72 RR 18 Pulse ox 100% on RA, Pulse 51 Temp 36.1 Onset Date: 12/04/18 Onset Time: 18:00 Duration: Hour(s): Location: Reports: Head Quality: Reports: Ache, Dull, Same as Previous Episode, Stabbing Severity: Moderate Improves with: Reports: Medication Worsens with: Reports: None Context: Reports: Other Associated Symptoms: Reports: No Other Symptoms - Related Data Allergies Allergy/AdvReac Type Severity Reaction Status Date / Time No Known Allergies Allergy Verified 12/04/18 21:48 Home Meds: Home Meds Fludrocortisone [Florinef] 0.1 mg PO BID 11/14/18 [History] SUMAtriptan 100 mg PO DAILY PRN MDD 200 12/04/18 [History] Past Medical History - Past Health History Medical/Surgical History: Denies Medical/Surgical History Cardiovascular History: Reports: Other (See Below) Other Cardiovascular History: States she is hypotensive. 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 Neurological History: Reports: Other (See Below) Other Neuro History: Recurrent migraines----states this has resolved since being on Prednisone. Psychiatric History: Reports: Anxiety, Depression, Panic Attack, Other (See Below) Other Psychiatric History: States she has tried to harm herself in the past. Hematologic History: Reports: Anemia - Past Surgical History Female Surgical History: Reports: Hysterectomy, Salpingo-Oophorectomy Social & Family History - Family History Family Medical History: Noncontributory - Caffeine Use Caffeine Use: Reports: Soda - Living Situation & Occupation Living situation: Reports: ED ROS GENERAL - Review of Systems Review Of Systems: See Below Constitutional: Reports: No Symptoms HEENT: Reports: No Symptoms Respiratory: Reports: No Symptoms Cardiovascular: Reports: No Symptoms Endocrine: Reports: No Symptoms GI/Abdominal: Reports: No Symptoms : Reports: No Symptoms Musculoskeletal: Reports: No Symptoms Skin: Reports: No Symptoms Neurological: Reports: Headache Psychiatric: Reports: No Symptoms Hematologic/Lymphatic: Reports: No Symptoms Immunologic: Reports: No Symptoms - Physical Exam Exam: See Below Exam Limited By: No Limitations General Appearance: Alert, WD/WN, Mild Distress Eye Exam: Bilateral Eye: Normal Inspection Ears: Normal External Exam, Normal Canal Nose: Normal Inspection, Normal Mucosa Throat/Mouth: Normal Inspection, Normal Lips, Normal Voice, No Airway Compromise Head Exam: Atraumatic, Normocephalic Neck: Normal Inspection, Supple, Non-Tender, Full Range of Motion Respiratory/Chest: No Respiratory Distress, Lungs Clear, Normal Breath Sounds, Chest Non-Tender Cardiovascular: Normal Peripheral Pulses, Regular Rate, Rhythm, No Edema, No Gallop, No JVD, No Murmur GI/Abdominal: Normal Bowel Sounds, Soft, Non-Tender, No Organomegaly (Female) Exam: Deferred Rectal (Female) Exam: Deferred Neuro Exam (Abbreviated): Alert, Oriented, CN II-XII Intact, Normal Cognition, Normal Gait Back Exam: Normal Inspection, Full Range of Motion Extremities: Normal Inspection, Normal Range of Motion, Non-Tender Psychiatric: Normal Affect, Normal Mood Skin Exam: Warm, Dry, Intact, Normal Color Course - Vital Signs Text/Narrative:: 33 y.o. female with a H/O migraine H/A, came withe her own car to the ED due to mily temporal H/A as she had in the past. No N/V/D no trauma. 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 Pt stated, in the past. Imitrex give SQ helped her pain. No other acute med. issues. BP 106/72 RR 18 Pulse ox 100% on RA, Pulse 51 Temp 36.1 PE: WNWD female with migraine like headache symptoms. Not worse headache. Labs/Imaging: Not indicated Impression: Migraine like headache Tx: Imitrex SQ Reexam: Pain subsided 100% Plan: D/C with instructions Last Recorded V/S: Last Vital Signs Temp 36.1 C 12/04/18 21:35 Pulse 56 L 12/04/18 21:35 Resp 18 12/04/18 21:35 BP 106/72 12/04/18 21:35 Pulse Ox 100 12/04/18 21:35 - Orders/Labs/Meds Meds: Medications Discontinued Medications Generic Name Dose Route Start Last Admin Trade Name Marti PRN Reason Stop Dose Admin Sumatriptan Succinate 6 mg 12/04/18 21:46 12/04/18 21:58 Imitrex SUBCUT 12/04/18 21:47 6 mg ONETIME STA Administration Departure - Departure Time of Disposition: 22:31 Disposition: Home, Self-Care 01 Condition: Good Clinical Impression: Migraine - Discharge Information Instructions: Migraine Headache, [id number] Referrals: Dwain Mosqueda MD [Primary Care Provider] - Forms: ED Department Discharge Additional Instructions: Please continue your current meds, please f/u, come back if your symptoms get worse acutely
[2018-12-04 21:56] VITALS: BP 106/72
== END 2018-12-04 22:38 | disposition home or self-care (01) ==
LOC: FB.ED 21:35
DX: G43.909 Migraine, unspecified, not intractable, without status migrainosus (principal); F41.9 Anxiety disorder, unspecified; F32.9 Major depressive disorder, single episode, unspecified
CPT/HCPCS: 96372; 99282; J3030

== ENCOUNTER 2019-01-11 06:52 | Emergency (ER) | payer MEDICAID ==
--- NOTE | 2019-01-11 08:20 | EDM.PDOC ---
ED HPI GENERAL MEDICAL PROBLEM - General Chief Complaint: ENT Problem Stated Complaint: FEVER Time Seen by Provider: 01/11/19 08:10 Source of Information: Reports: Patient History Limitations: Reports: No Limitations - History of Present Illness INITIAL COMMENTS - FREE TEXT/NARRATIVE: starting yesterday had sore throat, pain in both ears, nasal congestion, cough. No fever, but feels hot and cold. Has been taking Dayquil and Nyquil, also used a throat spray. No chest pain or shortness of breath. No nausea, vomiting or diarrhea. Co-worker at [employer] also has been sick, and reportedly had strep. Very worried as she had lots of ear infections as a child. No discharge. Generally healthy, on fludrocortisone for low blood pressure. Throat & bileral ears Pain Score (Numeric/FACES): 10 - Related Data Allergies Allergy/AdvReac Type Severity Reaction Status Date / Time No Known Allergies Allergy Verified 01/11/19 07:12 Home Meds: Home Meds Fludrocortisone [Florinef] 0.2 mg PO BID 11/14/18 [History] SUMAtriptan 100 mg PO DAILY PRN MDD 200 12/04/18 [History] Amitriptyline [Elavil] 25 mg PO BEDTIME 01/11/19 [History] Past Medical History - Past Health History Medical/Surgical History: Denies Medical/Surgical History Cardiovascular History: Reports: Other (See Below) Other Cardiovascular History: States she is hypotensive. 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 Neurological History: Reports: Migraines, Other (See Below) Other Neuro History: Recurrent migraines----states this has resolved since being on Prednisone. Psychiatric History: Reports: Anxiety, Depression, Panic Attack, Suicide Attempt , Other (See Below) Other Psychiatric History: States she has tried to harm herself in the past. Hematologic History: Reports: Anemia - Infectious Disease History Infectious Disease History: Reports: Chicken Pox - Past Surgical History Female Surgical History: Reports: Hysterectomy, Salpingo-Oophorectomy Musculoskeletal Surgical History: Reports: None Social & Family History - Family History Family Medical History: Noncontributory - Tobacco Use Smoking Status *Q: Current Some Day Smoker Years of Tobacco use: 4 Packs/Tins Daily: 0.2 - Caffeine Use Caffeine Use: Reports: Soda - Alcohol Use Alcohol Use History: No - Recreational Drug Use Recreational Drug Use: No - Living Situation & Occupation Living situation: Reports: (works at [employer]) ED ROS GENERAL - Review of Systems Review Of Systems: ROS reveals no pertinent complaints other than HPI. ED EXAM, GENERAL - Physical Exam Exam: See Below Free Text/Narrative:: General: alert, pleasant no acute distress but tired appearing. Tympanic membranes are clear bilaterally with normal reflexes, throat is erythematous but there is no tonsillar enlargement or exudate. No cervical lymph adenopathy. Lungs are clear. No wheezes or crackles and heart is regular rate and rhythm. Significant nasal congestion is noted. uvula is midline and neck is freely movable. Voice slightly hoarse. Course - Vital Signs Text/Narrative:: Patient seen and evaluated, symptoms most consistent with acute upper respiratory tract infection. Rapid strep is negative, culture pending. Discussed supportive cares including adding ibuprofen, using warm compress on the side of her neck to help her ears, continuing throat spray. Discussed her symptoms that should prompt need for immediate reevaluation and all questions were answered, she is in agreement with this plan Last Recorded V/S: Last Vital Signs Temp 36.7 C 01/11/19 07:05 Pulse 79 01/11/19 07:05 Resp 18 01/11/19 07:05 BP 120/85 01/11/19 07:05 Pulse Ox 100 01/11/19 07:05 - Orders/Labs/Meds Orders: Active Orders 24 hr Category Date Time Status CULTURE STREP A CONFIRMATION [] Routine Lab 01/11/19 07:36 Results STREP SCRN A RAPID W CULT CONF [RM] Routine Lab 01/11/19 07:36 Results Departure - Departure Time of Disposition: 08:20 Disposition: DC/Tfer to [facility] Home04 Condition: Good Clinical Impression: Viral URI with cough - Discharge Information *PRESCRIPTION DRUG MONITORING PROGRAM REVIEWED*: Not Applicable *COPY OF PRESCRIPTION DRUG MONITORING REPORT IN PATIENT JN: Not Applicable Instructions: Viral Respiratory Infection, [id number] Referrals: Dwain Mosqueda MD [Primary Care Provider] - Additional Instructions: continue florinef/medication for blood pressure. May want to call or check with regular physician if you are supposed to increase dosing when sick; usually with this medication we keep the same dosing. if feeling worse-- difficulty swallowing, difficulty opening jaw or moving neck AND a fever, return to ER. Anticipate symptoms will improve in a few days. Drink lots of fluids and be sure to get good rest. - My Orders Last 24 Hours: My Active Orders 01/11/19 07:36 CULTURE STREP A CONFIRMATION [RM] Routine STREP SCRN A RAPID W CULT CONF [RM] Routine - Assessment/Plan Last 24 Hours: My Active Orders 01/11/19 07:36 CULTURE STREP A CONFIRMATION [RM] Routine STREP SCRN A RAPID W CULT CONF [RM] Routine
[2019-01-11 08:40] VITALS: BP 113/84
== END 2019-01-11 08:30 | disposition home or self-care (01) ==
LOC: FB.ED 06:52
DX: J06.9 Acute upper respiratory infection, unspecified (principal); F17.210 Nicotine dependence, cigarettes, uncomplicated; Z79.899 Other long term (current) drug therapy
CPT/HCPCS: 87081; 87880-QW; 99283

== ENCOUNTER 2020-03-02 22:58 | Emergency (ER) | payer MEDICAID ==
[2020-03-02] MEDS ORDERED: predniSONE 20 MG Tab PO ONE (22:59)
[2020-03-02 23:09] VITALS: BP 113/78; PULSE 80
--- NOTE | 2020-03-02 23:17 | EDM.PDOC ---
ED HPI GENERAL MEDICAL PROBLEM - General Chief Complaint: Bite:Animal, Insect Stated Complaint: BEE STING Time Seen by Provider: 03/02/20 23:15 Source of Information: Reports: Patient History Limitations: Reports: No Limitations - History of Present Illness INITIAL COMMENTS - FREE TEXT/NARRATIVE: Bee sting 2 days ago. Swelling continues despite Tylenol and Benadryl. Moderate pain. No SOB right thigh Pain Score (Numeric/FACES): 6 - Related Data Allergies Allergy/AdvReac Type Severity Reaction Status Date / Time No Known Allergies Allergy Verified 01/11/19 07:12 Home Meds: Home Meds Fludrocortisone [Florinef] 0.2 mg PO BID 11/14/18 [History] SUMAtriptan 100 mg PO DAILY PRN MDD 200 12/04/18 [History] Amitriptyline [Elavil] 25 mg PO BEDTIME 01/11/19 [History] Past Medical History - Past Health History Medical/Surgical History: Denies Medical/Surgical History Cardiovascular History: Reports: Other (See Below) Other Cardiovascular History: States she is hypotensive. 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 Neurological History: Reports: Migraines, Other (See Below) Other Neuro History: Recurrent migraines----states this has resolved since being on Prednisone. Psychiatric History: Reports: Anxiety, Depression, Panic Attack, Suicide Attempt, Other (See Below) Other Psychiatric History: States she has tried to harm herself in the past. Hematologic History: Reports: Anemia - Infectious Disease History Infectious Disease History: Reports: Chicken Pox - Past Surgical History Female Surgical History: Reports: Hysterectomy, Salpingo-Oophorectomy Musculoskeletal Surgical History: Reports: None Social & Family History - Family History Family Medical History: Noncontributory - Tobacco Use Smoking Status *Q: Current Every Day Smoker Years of Tobacco use: 5 Packs/Tins Daily: 0.2 - Caffeine Use Caffeine Use: Reports: Soda - Living Situation & Occupation Living situation: Reports: (works at [employer]) ED ROS GENERAL - Review of Systems Review Of Systems: Comprehensive ROS is negative, except as noted in HPI. ED EXAM, ANIMAL BITE - Physical Exam Exam: See Below Text/Narrative:: [place]ner area post thigh,right. Warm. Red. Exam Limited By: No Limitations General Appearance: Alert, WD/WN Course - Vital Signs Last Recorded V/S: Last Vital Signs Temp 98.9 F 03/02/20 22:58 Pulse 80 03/02/20 22:58 Resp 16 03/02/20 22:58 BP 113/78 03/02/20 22:58 Pulse Ox 99 03/02/20 22:58 Departure - Departure Time of Disposition: 23:17 Disposition: Home, Self-Care 01 Condition: Good Clinical Impression: Urticaria - Discharge Information Instructions: Insect Bite, Adult, [id number] Referrals: Dwain Mosqueda MD [Primary Care Provider] - Forms: ED Department Discharge Additional Instructions: take prednisone 20mg 1 tab twice a day for 4days you may was warm compress as needed on the site you may take Tylenol and Benadryl as needed for allergic reaction follow up with your primary care as needed Sepsis Event Note (ED) - Evaluation Sepsis Screening Result: No Definite Risk - Focused Exam Vital Signs: Vital Signs Temp Pulse Resp BP Pulse Ox 03/02/20 22:58 98.9 F 80 16 113/78 99 - Problem List & Annotations (1) Insect bite SNOMED Code(s): 259067347, 500461435 Code(s): W57.XXXA - BIT/STUNG BY NONVENOM INSECT & OTH NONVENOM ARTHROPODS, INIT Status: Acute Qualifiers: Encounter type: initial encounter - Problem List Review Problem List Initiated/Reviewed/Updated: Yes - Assessment/Plan Plan: Prednisone 20 mg PO BID. Warm Compress.
== END 2020-03-02 23:23 | disposition home or self-care (01) ==
LOC: FB.ED 22:58
DX: L50.9 Urticaria, unspecified (principal); F17.210 Nicotine dependence, cigarettes, uncomplicated; F41.9 Anxiety disorder, unspecified; F32.9 Major depressive disorder, single episode, unspecified; Z79.899 Other long term (current) drug therapy
CPT/HCPCS: 99282; J7512

== ENCOUNTER 2021-09-25 04:17 | Emergency (ER) | payer MEDICAID ==
[2021-09-25] MEDS: Ondansetron 4 MG/2 ML SDV IVPUSH ONE (04:33)
[2021-09-25] MEDS: Ondansetron 4 MG/2 ML SDV ONE (04:38)
[2021-09-25] MEDS ORDERED: Ondansetron 4 MG/2 ML SDV IVPUSH ONE (05:45)
[2021-09-25] MEDS: Sodium Chloride 0.9% 1,000 ML IV ONE (05:48)
[2021-09-25] MEDS: SUMAtriptan 50 MG Tab PO ONE (05:52)
[2021-09-25] MEDS: Ketorolac 30 MG/ML SDV IVPUSH ONE (05:52)
[2021-09-25] MEDS: Acetaminophen 500 MG Tab PO ONE (05:52)
[2021-09-25] MEDS: diphenhydrAMINE 50 MG/ML SDV IVPUSH ONE (05:53)
[2021-09-25 06:07] VITALS: BP 119/87
[2021-09-25 07:10] VITALS: PULSE 77
== END 2021-09-25 07:00 | disposition home or self-care (01) ==
LOC: SUPCPDRO 04:17 → FB.ED 04:17
DX: G43.909 Migraine, unspecified, not intractable, without status migrainosus (principal); M79.2 Neuralgia and neuritis, unspecified; Z72.0 Tobacco use
CPT/HCPCS: 36415; 70450; 80053; 84484; 85025; 93005; 96374; 96375; 99284; A9270; J1200; J1885; J2405; J7030

== ENCOUNTER 2021-10-30 19:18 | Emergency (ER) | payer MEDICAID ==
[2021-10-30 19:32] VITALS: BP 117/75; PULSE 111
[2021-10-30] MEDS ORDERED: Cephalexin 500 MG Cap PO STA (20:57)
[2021-10-30] MEDS ORDERED: Diphtheria,Pertussis(Acell),Tetanus Vaccine 0.5 ML Syringe IM ONE (20:57)
== END 2021-10-30 21:19 | disposition home or self-care (01) ==
LOC: FB.ED 19:18
DX: S61.211A Laceration without foreign body of left index finger without damage to nail, initial encounter (principal); Z72.0 Tobacco use; Z23 Encounter for immunization; W26.8XXA Contact with other sharp object(s), not elsewhere classified, initial encounter
CPT/HCPCS: 12002; 73130-LT; 90471; 90715; 99281; 99283-25; A9270-GY

== ENCOUNTER 2022-05-16 21:54 | Emergency (ER) | payer MEDICAID ==
[2022-05-16] MEDS ORDERED: Morphine 10 MG/ML SDV IM ONE (22:38)
[2022-05-16] MEDS ORDERED: hydrOXYzine HCl 50 MG/ML SDV IM ONE (22:38)
[2022-05-17 03:42] VITALS: BP 125/80; PULSE 98
== END 2022-05-16 23:01 | disposition home or self-care (01) ==
LOC: FB.ED 21:54
DX: M54.50 Low back pain, unspecified (principal); Z79.899 Other long term (current) drug therapy; Z90.710 Acquired absence of both cervix and uterus; X50.0XXA Overexertion from strenuous movement or load, initial encounter
CPT/HCPCS: 96372; 99283; J2270; J3410

== ENCOUNTER 2022-12-31 20:46 | Emergency (ER) | payer MEDICAID ==
[2022-12-31] MEDS ORDERED: Ketorolac 30 MG/ML SDV IM ONE (21:05)
[2022-12-31] MEDS ORDERED: hydrOXYzine HCl 50 MG/ML SDV IM ONE (21:05)
[2022-12-31 22:25] LABS: INFLUENZA A NAA NEGATIVE (NEGATIVE); INFLUENZA B NAA NEGATIVE (NEGATIVE); RESPIRATORY SYNCYTIAL VIR NAA NEGATIVE (NEGATIVE)
[2022-12-31 22:27] LABS: CORONAVIRUS COVID-19 NAA NEGATIVE (NEGATIVE)
[2023-01-01 02:06] VITALS: BP 113/67; PULSE 108
== END 2022-12-31 22:46 | disposition home or self-care (01) ==
LOC: FB.ED 20:46
DX: J06.9 Acute upper respiratory infection, unspecified (principal); Z20.822 Contact with and (suspected) exposure to COVID-19
CPT/HCPCS: 0241U; 87651; 96372; 99284; J1885; J3410

== ENCOUNTER 2023-06-06 15:33 | Emergency (ER) | payer MEDICAID ==
[2023-06-06] MEDS ORDERED: Morphine 4 MG/ML VIAL IM ONE (15:45)
[2023-06-06] MEDS ORDERED: Ondansetron 4 MG Tab.DIS PO ONE (15:46)
[2023-06-06] MEDS ORDERED: Promethazine 25 MG/ML SDV IM ONE (16:36)
[2023-06-06] MEDS ORDERED: Ketorolac 30 MG/ML SDV IM ONE (16:37)
[2023-06-06] MEDS ORDERED: hydrOXYzine HCl 50 MG/ML SDV IM ONE (16:37)
[2023-06-06] MEDS ORDERED: Dexamethasone 4 MG/ML 5 ML MDV IM ONE (17:54)
[2023-06-06 20:08] VITALS: PULSE 65
[2023-06-06 20:19] VITALS: BP 120/66
== END 2023-06-06 18:27 | disposition home or self-care (01) ==
LOC: FB.ED 15:33
DX: S09.90XA Unspecified injury of head, initial encounter (principal); S16.1XXA Strain of muscle, fascia and tendon at neck level, initial encounter; G43.911 Migraine, unspecified, intractable, with status migrainosus; J32.8 Other chronic sinusitis; W19.XXXA Unspecified fall, initial encounter; W22.8XXA Striking against or struck by other objects, initial encounter
CPT/HCPCS: 70450; 72125; 96372; 99284; J1100; J2270; Q0162

== ENCOUNTER 2024-07-06 00:31 | Emergency (ER) | payer MEDICAID ==
[2024-07-06] MEDS: Diphtheria,Pertussis(Acell),Tetanus Vaccine 0.5 ML Syringe IM ONE (02:03)
[2024-07-06 02:11] VITALS: BP 98/64; PULSE 91
== END 2024-07-06 02:10 | disposition home or self-care (01) ==
LOC: FB.ED 00:31
DX: S61.411A Laceration without foreign body of right hand, initial encounter (principal); Z23 Encounter for immunization; Z90.710 Acquired absence of both cervix and uterus; F17.210 Nicotine dependence, cigarettes, uncomplicated; X10.1XXA Contact with hot food, initial encounter
CPT/HCPCS: 12001; 90471; 90715; 99282-25; 99283